=== PATIENT | male | born 1985 | race Caucasian/White ===

== ENCOUNTER → 2018-06-03 08:11 | Outpatient (CLI) | payer BC, SELFPAY ==
[2018-06-03 13:01] LABS: Cholesterol 190 mg/dL (200); High Density Lipoprotein 55 mg/dL; Prolactin 8.9 ng/mL; Thyroid Stim Hormone (TSH) 3.39 uIU/mL (0.358-3.74); Triglycerides 127 mg/dL; Very Low Density Lipoprotein 25 mg/dL (5-40)
[2018-06-10 12:08] LABS: Testosterone, % Free 3.15 % (1.50-4.20); Testosterone, Free 13.39 ng/dL (5.00-21.00)
[2018-06-10 14:24] LABS: Testosterone, Total 425 ng/dL (264-916); Transferrin 242 mg/dL (200-370)
== END ==
PROVIDERS: Family Provider Family Medicine; PCP Family Medicine; Visit Provider Family Medicine
DX: Z00.00 Encounter for general adult medical examination without abnormal findings (principal); R53.83 Other fatigue; E29.1 Testicular hypofunction
CPT/HCPCS: 36415; 80061; 84146; 84402; 84403; 84443; 84466